=== PATIENT | female | born 1955 | race Caucasian/White ===

== ENCOUNTER → 2017-04-16 | Outpatient (CLI) | payer BC ==
[~2017-04-16] MED LIST: ALBU1AER9 INH; ANAS1TAB19 PO; CALC-214 PO; CHOL100010 PO; FLUT0.0529 NAE; OMEG10007 PO; OXYC-643 PO; SCOP1DIS4 TOP
--- NOTE | 2017-04-16 13:42 | MAMMOGRAPHY REPORT ---
UNILATERAL RIGHT DIGITAL DIAGNOSTIC MAMMOGRAM TOMOSYNTHESIS WITH CAD AND TARGETED RIGHT ULTRASOUND: CLINICAL HISTORY: The patient reports a palpable lump in her right breast which she has not clearly f elt before. History of left breast cancer status post treatment. TECHNIQUE: Breast tomosynthesis in addition to standard 2D mammography was performed. Current study was also evaluated with a Computer Aided Detection (CAD) system. Right CC and MLO 2-D and tomosynthe sis images were obtained. COMPARISON: Comparison is made to exams dated: 07/30/2016 mammogram, 01/28/2016 mammogram, 07/22/2015 ultrasound, 07/22/2015 mammogram, 01/09/2015 mammogram, and 08/09/2014 ultrasound - [facility]. BREAST COMPOSITION: There are scattered areas of fibroglandular density in the right breast. FINDINGS: A triangle marker diaz the site of the palpable lump in the right breast. At the site of the palpable marker in the right lateral anterior breast at approximately 8 to 9:00, there is a roun d circumscribed benign-appearing 6 mm mass. The mass is stable in size dating back to at least the 2014 mammogram, and has been present dating back to at least the 2008 exam. The remainder of the right breast is stable compared to prior exams, without suspicious masses, calcifications, or ar eas of architectural distortion noted. Targeted ultrasound was performed of the area of the palpable lump pointed out by the patient, in the right breast 8:00 periareolar region. At the site of the palpable lump there is a superficial circu mscribed anechoic round 6 x 5 x 5 mm mass, consistent with a benign simple cyst. This is stable comp ared to the prior 07/22/2015 ultrasound exam. This corresponds with the stable mammographic mass and is consistent with a benign cyst. IMPRESSION: ACR BI-RADS CATEGORY 2: BENIGN, TARGETED ULTRASOUND ACR BI-RADS CATEGORY 2: BENIGN The palpable lump in the right 8:00 periareolar breast corresponds with a superficial benign 6 mm sim ple cyst, which is stable mammographically and sonographically dating back to at least the 2014 exam. There is no mammographic or targeted sonographic evidence of malignancy. Recommend clinical follow -up, and recommend routine bilateral mammograms which are due July 2017. The patient has been verbally notified of the results. Approximately 10% of breast cancers are not detected with mammography. A negative mammographic report should not delay biopsy if a clinically suggestive mass is present. Delores Blue M.D. ah/:04/16/2017 10:45:17 Geophysics Scientist: Monse PENA)(Asha), [facility] letter sent: Normal 1/2 BI-RADS Code: ACR BI-RADS Category 2: Benign Ultrasound BI-RADS: ACR BI-RADS Category 2: Benign
== END | disposition home or self-care (01) ==
LOC: C.MAMM 10:13
PROVIDERS: ATTEND Family Medicine
DX: N60.01 Solitary cyst of right breast (principal)

== ENCOUNTER → 2017-06-02 | Outpatient (CLI) | payer BC ==
[2017-06-02 13:30] VITALS: BP 127/78; PULSE 84; TEMP 36.4; O2SAT 100
--- NOTE | 2017-06-02 14:22 | Radiation Oncology Follow-Up ---
Radiation Oncology Follow-Up Date of Visit Jun 02, 2017. Reason For Visit Annual follow-up Radiation Completion Date finished 11-02-2014 using accelerated partial breast radiaion Diagnosis (1) Breast cancer, stage 1, estrogen receptor positive Status: Resolved Onset Date: 07/24/2014 Histology Subtype: ductal Stage: l Permanent Comment: Abnormal left breast mammogram Status post ultrasound-guided biopsy 07/24/2014 status post lumpectomy and sentinel lymph node biopsy 09/04/2014 stage [id number] estrogen receptor positive , progesterone receptor positive, HER-2/pamela negative Oncotype DX score of 12 Status post completion of radiation therapy 11/02/2014 utilizing accelerated partial breast treatment received 3850 cGy Last Edited By: Inga Fuller on December 06, 2014 15:56 History of Present Illness Ms. Montiel is without a family history of breast cancer. She underwent her bilateral digital screening mammogram on June 112013. This was compared to prior studies from January 2013. This study showed a 7 mm irregular focal asymmetry in the 12:00 posterior left breast with recommended spot compression views and ultrasound. On 07/02/2014 the patient underwent a unilateral left digital diagnostic mammogram and targeted left ultrasound. This revealed that the left upper inner quadrant at approximately 11:00 and irregular spiculated mass measuring 0.9 cm in size that correlates with the previously described mammographic focal asymmetry. Targeted ultrasound was performed 6 cm from the nipple at the 11 o'clock position revealed an irregular hypoechoic mass measuring 0.7 x 0.5 x 0.7 cm that was felt to correlate with the mammographic mass. This was highly suspicious and an ultrasound-guided core biopsy was recommended. This was given a BI-RADS Category 5. The patient was seen by Dr. Blair. He recommended breast MRIs which were performed on 07/13/2014. The right breast showed multiple nonenhancing mass is seen throughout the right breast consistent with cysts. In the left breast at the 11:00 middle depth an irregular spiculated enhancing mass was identified measuring 0.8 cm in size. This correlated with the highly suspicious mass seen on mammogram and ultrasound. Multiple nonenhancing masses were seen throughout the left breast consistent with cysts. At the 12:00 anterior depth position an oval 0.4 cm circumscribed mass was seen with an overall measurement of 0.8 cm taking into account the enhancement area. These are suggestive of an inflamed complicated cyst with follow-up examination recommended. On 07/24/2014 the patient underwent an ultrasound-guided left breast biopsy. This was performed at the 11 o'clock position. This revealed an infiltrating duct carcinoma Sultana grade 1 of 3. The tumor measured up to 0.4 cm on core biopsy. 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 Microcalcifications were associated with the DCIS and the invasive carcinoma. No lymphovascular invasion was identified. Estrogen receptors were positive (>90%, strong). Estrogen receptors were positive (>90%, strong). HER-2/pamela overexpression was negative (score equals 0) . The tumor cells were negative by FISH amplification for HER-2/pamela. Case: [id number]. The suspicious area at the 12 o'clock position of the left breast was also aspirated which revealed cyst contents and no malignancy. Case: [id number] The patient was seen by Dr. Coker for evaluation and discussion of the surgical treatment options. He discussed rest conserving therapy and the patient agreed. Therefore on September 05 the patient underwent a left breast partial mastectomy and left axilla sentinel lymph node sampling. Left breast lumpectomy specimen revealed residual invasive ductal carcinoma measuring 1.5 cm in greatest dimension. The tumor was an infiltrating ductal carcinoma Jorge grade 1 of 3. There was evidence of residual ductal carcinoma in situ cribriform with focal non-comedonecrosis. There was no LCIS. The margins were uninvolved by invasive carcinoma ranging from 0.4-0.8 cm. 3 lymph nodes were identified all 3 lymph nodes were negative by immunohistochemical stains for cytokeratin and on routine sections. No lymphovascular invasion was identified. Pathologic stage is [id number](sn) ER positive FL positive HER-2/pamela negative. Case: [id number]. Patient was seen by Dr. Sameer Zimmerman for evaluation and discussion of the role of adjuvant therapy. An Oncotype DX assay was performed which showed a recurrent score of 12. This places her in the low risk category with a projected 10 year risk of developing recurrent cancer following 5 years of tamoxifen at 8%. No chemotherapy was therefore recommended. Anti-estrogen therapy will be utilized and started after completion of her radiation. The patient is ready to begin her adjuvant radiation. She underwent CT simulation was found to be a candidate for accelerated partial breast treatment. She was treated from 10/29/2014 to 11/02/2014 she received 3850 cGy. Interim History She recently felt an abnormality in the right breast just below and to the right of the nipple. She was concerned. She saw Dr. Treva Nieves and underwent mammography and ultrasound. This was found to be a simple cyst. This has been previously seen on mammography and has been followed since 2014. She has mild tenderness associated. She does not feel that the assistance changed since her evaluation. There is less tenderness. She's noted no changes of her left breast. She is noted no masses or tenderness no change in the axilla. She has had no swelling of her arm. She had bilateral mammography in July 2016. This showed expected changes and no evidence of malignancy. Her next mammogram is scheduled for July 28. She has small skin lesion of the right anterior chest. This has become less red. There is no associated dryness. She is planning appointment with her PCP in the next month and I've asked her to once again show this to the primary care physician. Allergies Coded Allergies: No Known Allergies (Unverified , 10/18/14) Home Medications Scheduled Anastrozole (Arimidex), 1 MG PO DAILY Calcium W/ Magnesium (Calcium & Magnesium), 1 TAB PO DAILY Cholecalciferol (Vitamin D), 1,000 INTER.UNIT PO DAILY Fish Oil ([place]-3), 1 CAP PO DAILY Scheduled PRN Albuterol Sulfate (Proair Hfa), 2 PUFFS INH Q4H PRN for Shortness of Breath Fluticasone Propionate (Nasal) (Flonase), 2 SPRAYS LANETTE DAILY PRN for Nasal Congestion Scopolamine (Transderm-Scop), 1 APPLN TOP DIRECTED PRN for Nausea or Vomiting Review of Systems Gastrointestinal: Symptoms: WNL GI Comments: Some constipation since starting arimidex;Increasing PO hydration; Oral: Symptoms: No Problems Respiratory: Symptoms: WNL Urinary: Symptoms: Nocturia Comments: nocturia times 1 Skin: Symptoms: No Problems Other Skin Symptoms: slight shadow of skin discoloration of left breast Breast: Right Upper Arm Measurement: 28.4 Right Mid Arm Measurement: 23.5 Right Wrist Measurement: 16.0 Left Upper Arm Measurement: 28.5 Left Mid Arm Measurement: 23.5 Left Wrist Measurement: 15.9 Arm Dominence: Right Patient Cosmetic Evaluation: Excellent Staff Cosmetic Evalaluation: Excellent Physical Exam Vital Signs Date Time Temp Pulse Resp B/P (MAP) Pulse Ox O2 Delivery O2 Flow Rate FiO2 06/02/17 13:30 36.4 84 16 127/78 100 Pain: Side: Bilateral Pain Location: None Patient Pain Scale: 0 - 10 Initial Pain Intensity: 0.0 Fatigue: None General Appearance: no apparent distress Eyes: normal inspection, EOMI ENT: normal ENT inspection, hearing grossly normal, pharynx normal Neck: no adenopathy, thyroid normal Respiratory/Chest: lungs clear, no respiratory distress, no accessory muscle use Breast: Breast examination reveals well-healed incisions of the left breast. There are no masses or tenderness no axillary adenopathy. There are fibrous changes in the upper quadrants of the breast. There are no distinct masses. She has no skin retractions or nipple changes. Using the [place] score cosmesis she has a excellent outcome. The right breast showed no masses or tenderness no axillary adenopathy. There is a small superficial skin cyst below the nipple at the 7 o' clock position. There is no tenderness. Cardiovascular: regular rate, rhythm, no gallop, no murmur Extremities: no pedal edema Neurologic/Psychiatric: no motor/sensory deficits, alert, normal mood/affect Skin: + pertinent finding (she has a small 7 mm skin lesion that's oval in shape in the upper right anterior chest. There is mild dryness in the periphery of the lesion.) Additional Studies Patient: FRAN MONTIEL [facility] Rec: [id number] Address1: [facility] [address] [id number] Date: 1955 Sex: F Ref Phy: Att Phy: Inga Fuller PA-C Sandy Phy: Tamara Arriola D.O. Inter Phy: Delores Blue MD [facility] Zip: [place] [id number] SC: [id number] Report #: [id number] Chart Picker: [email or web address] Diagnosis: 6 MONTH F/U BILATERAL DUE Service Date: 07/30/16 MNE: [id number] Ordering Dr: Inga Fuller PA-C CC: Inga Fuller PA-C CONF: DICTATED BY: Delores Blue MD MAMMOGRAPHY REPORT BILATERAL DIGITAL DIAGNOSTIC MAMMOGRAM TOMOSYNTHESIS WITH CAD: 07/30/2016 CLINICAL HISTORY: History of left breast cancer status post lumpectomy September 2014, here for short interval follow-up. Currently asymptomatic. TECHNIQUE: Breast tomosynthesis in addition to standard 2D mammography was performed. Current study was also evaluated with a Computer Aided Detection (CAD ) system. Bilateral CC and MLO 2-D and tomosynthesis images and spot magnification left CC and ML views were obtained. COMPARISON: Comparison is made to exams dated: 01/28/2016 mammogram, 07/22/2015 mammogram, 01/09/2015 mammogram, 07/24/2014 mammogram, 02/06/2013 mammogram, and 03/10/2011 mammogram - [facility]. BREAST COMPOSITION: There are scattered areas of fibroglandular density in both breasts. FINDINGS: There are stable postsurgical changes in the left 12:00 posterior breast from prior lumpectomy, including stable density and architectural distortion at the lumpectomy bed. The remainder of both breasts are also stable compared to prior exams, without suspicious masses, calcifications, or areas of architectural distortion noted. There is a stable circumscribed benign -appearing 7 mm mass seen within the right anterior breast, which was shown to represent a benign cyst on a prior ultrasound exam. IMPRESSION: ACR BI-RADS CATEGORY 2: BENIGN Expected posttreatment changes in the left breast, without mammographic evidence of malignancy in either breast. A 1 year screening mammogram is recommended. The patient has been verbally notified of the results. Approximately 10% of breast cancers are not detected with mammography. A negative mammographic report should not delay biopsy if a clinically suggestive mass is present. Delores Blue M.D. ah/:07/30/2016 09:33:44 Geotechnical Engineer: Monse GAYLE(Elias)(M), [facility] letter sent: Normal 1/2 BI-RADS Code: ACR BI-RADS Category 2: Benign Dictated by: Delores Blue MD Signed by: Delores Blue MD Patient: FRAN MONTIEL [facility] Rec: [id number] Address1: [facility] [address] [address] Address2: Acct ID: [id number] Date: 1955 Sex: F Ref Phy: Treva Nieves M.D. Att Phy: Treva Nieves M.D. Sandy Phy: Tamara Arriola D.O. Inter Phy: Delores Blue MD [facility] Zip: [place] [address] SC: TaeMAMM Report #: [id number] Chart Picker: [email or web address] Diagnosis: RIGHT BREAST PEA SIZED MASS UNDERSIDE NEAR NIPPLE Service Date: 04/16/17 MNE: [id number] Ordering Dr: Treva Nieves M.D. CC: Treva Nieves M.D. CONF: DICTATED BY: Delores Blue MD MAMMOGRAPHY REPORT UNILATERAL RIGHT DIGITAL DIAGNOSTIC MAMMOGRAM TOMOSYNTHESIS WITH CAD AND TARGETED RIGHT ULTRASOUND: 04/16/2017 CLINICAL HISTORY: The patient reports a palpable lump in her right breast which she has not clearly felt before. History of left breast cancer status post treatment. TECHNIQUE: Breast tomosynthesis in addition to standard 2D mammography was performed. Current study was also evaluated with a Computer Aided Detection (CAD ) system. Right CC and MLO 2-D and tomosynthesis images were obtained. COMPARISON: Comparison is made to exams dated: 07/30/2016 mammogram, 01/28/2016 mammogram, 07/22/2015 ultrasound, 07/22/2015 mammogram, 01/09/2015 mammogram, and 08/09/2014 ultrasound - [facility]. BREAST COMPOSITION: There are scattered areas of fibroglandular density in the right breast. FINDINGS: A triangle marker diaz the site of the palpable lump in the right breast. At the site of the palpable marker in the right lateral anterior breast at approximately 8 to 9:00, there is a round circumscribed benign- appearing 6 mm mass. The mass is stable in size dating back to at least the July 2015 mammogram, and has been present dating back to at least the 2008 exam. The remainder of the right breast is stable compared to prior exams, without suspicious masses, calcifications, or areas of architectural distortion noted. Targeted ultrasound was performed of the area of the palpable lump pointed out by the patient, in the right breast 8:00 periareolar region. At the site of the palpable lump there is a superficial circumscribed anechoic round 6 x 5 x 5 mm mass, consistent with a benign simple cyst. This is stable compared to the prior 07/22/2015 ultrasound exam. This corresponds with the stable mammographic mass and is consistent with a benign cyst. IMPRESSION: ACR BI-RADS CATEGORY 2: BENIGN, TARGETED ULTRASOUND ACR BI-RADS CATEGORY 2: BENIGN The palpable lump in the right 8:00 periareolar breast corresponds with a superficial benign 6 mm simple cyst, which is stable mammographically and sonographically dating back to at least the 2014 exam. There is no mammographic or targeted sonographic evidence of malignancy. Recommend clinical follow-up, and recommend routine bilateral mammograms which are due July 2017. The patient has been verbally notified of the results. Approximately 10% of breast cancers are not detected with mammography. A negative mammographic report should not delay biopsy if a clinically suggestive mass is present. Delores Blue M.D. ah/:04/16/2017 10:45:17 Geotechnical Engineer: Monse PENA)(Asha), [facility] letter sent: Normal 1/2 BI-RADS Code: ACR BI-RADS Category 2: Benign Ultrasound BI-RADS: ACR BI-RADS Category 2: Benign Dictated by: Delores Blue MD Signed by: Delores Blue MD Assessment & Plan Plan: Continue mammography. She is due for bilateral mammography 07/28/2017. Continue follow-up with her primary care physician. I have asked her to show the small skin lesion to her primary care physician. Continue follow-up with Dr. Zimmerman or his associate. She continues on Arimidex. We asked her to return to our office in 1 year. She may cause she has any questions or concerns in the interim. Total Time In Follow-Up I spent 20 minutes speaking to the patient to performing examination. I spent 15 minutes reviewing information and completing this note. Copy To Tamara Arriola D.O.; Sameer Zimmerman M.D. Problem Qualifiers (1) Breast cancer, stage 1, estrogen receptor positive: Laterality: left Qualified Codes: C50.912 - Malignant neoplasm of unspecified site of left female breast; Z17.0 - Estrogen receptor positive status [ER+]
== END | disposition home or self-care (01) ==
LOC: C.ONC 13:06
PROVIDERS: ATTEND Physician Assistant Medical
DX: Z08 Encounter for follow-up examination after completed treatment for malignant neoplasm (principal); Z92.3 Personal history of irradiation; Z85.3 Personal history of malignant neoplasm of breast

== ENCOUNTER → 2017-07-28 | Outpatient (CLI) | payer BC ==
[~2017-07-28] MED LIST changes: -ANAS1TAB19 PO; +ANAS1TAB59 PO; -OXYC-643 PO
--- NOTE | 2017-07-29 13:46 | MAMMOGRAPHY REPORT ---
BILATERAL DIGITAL SCREENING MAMMOGRAM TOMOSYNTHESIS WITH CAD: 07/28/2017 CLINICAL HISTORY: Asymptomatic. Personal history of breast cancer. TECHNIQUE: Breast tomosynthesis in addition to standard 2D mammography was performed. Current study was also evaluated with a Computer Aided Detection (CAD) system. COMPARISON: Comparison is made to exams dated: 04/16/2017 ultrasound, 04/16/2017 mammogram, 07/30/2016 mammogram, 01/28/2016 mammogram, 07/22/2015 ultrasound, and 01/09/2015 mammogram - [facility]. BREAST COMPOSITION: There are scattered areas of fibroglandular density in both breasts. FINDINGS: There is a stable benign cyst in the anterior right breast and expected architectural disto rtion in the 12:00 posterior left breast. No suspicious mass, architectural distortion or cluster of suspicious microcalcifications is seen. IMPRESSION: ACR BI-RADS CATEGORY 1: NEGATIVE There is no mammographic evidence of malignancy. A 1 year screening mammogram is recommended. The pa tient will receive written notification of the results. Approximately 10% of breast cancers are not detected with mammography. A negative mammographic report should not delay biopsy if a clinically suggestive mass is present. Katie Weaver M.D. ay/:07/28/2017 15:58:42 [employer] Attendant: Isabela Dela Cruz, [facility] letter sent: Normal 1/2 BI-RADS Code: ACR BI-RADS Category 1: Negative
== END | disposition home or self-care (01) ==
LOC: C.MAMM 10:34
PROVIDERS: ATTEND Family Medicine
DX: Z12.31 Encounter for screening mammogram for malignant neoplasm of breast (principal)